=== PATIENT | male | born 1995 | race Two or more races ===

== ENCOUNTER → 2020-07-01 | Outpatient (CLI) | payer OTHER ==
[~2020-07-01] MED LIST: GLYCOPYRROLATE 1 MG/5 ML SYRINGE ONE; NEOSTIGMINE 5MG/5ML SYR IV ONE
== END | disposition home or self-care (01) ==
LOC: RAH 10:25
PROVIDERS: ATTEND Internal Medicine
DX: M76.62 Achilles tendinitis, left leg (principal); M79.89 Other specified soft tissue disorders
CPT/HCPCS: 76882; J2710; J3490